=== PATIENT | female | born 1975 | race Caucasian/White ===

== ENCOUNTER 2022-11-30 15:00 | Emergency (ER) | payer BC ==
[2022-11-30 15:06] VITALS: BP 103/71; PULSE 83; RESP 18; TEMP 98.3; BMI 25.6
[2022-11-30 18:47] LABS: BASO % 0.6 % (0-2.0); EOS % 7.9 % (0-4.5); HEMATOCRIT 35.1 % (32.4-45.2); HEMOGLOBIN 11.8 GM/dL (10.7-15.3); LYMPH % 32.9 % (8-40); MCH 28.9 pg (25.7-33.7); MCHC 33.5 g/dl (32.0-36.0); MEAN CELL VOLUME 86.4 fl (80-96); MEAN PLT VOLUME 9.3 fl (7.5-11.1); MONO % 5.6 % (3.8-10.2); PLATELET COUNT 245 10^3/uL (134-434); RBC 4.07 M/mm3 (3.60-5.2); RDW 13.4 % (11.6-15.6)
[2022-11-30 18:50] LABS: POTASSIUM 4.1 mmol/L (3.5-5.1)
[2022-11-30 18:53] LABS: CALCIUM 9.2 mg/dL (8.5-10.1)
[2022-11-30 18:54] LABS: ALBUMIN 3.8 g/dl (3.4-5.0); BLOOD UREA NITROGEN 6.4 mg/dL (7-18)
[2022-11-30 18:57] LABS: CREATININE 0.6 mg/dL (0.55-1.3)
[2022-11-30 18:59] LABS: BILIRUBIN,TOTAL 0.3 mg/dL (0.2-1); TOT PROT 7.2 g/dl (6.4-8.2)
[2022-11-30 19:08] LABS: AMYLASE 43 U/L (25-115); LIPASE 137 U/L (73-393)
[2022-11-30 22:35] LABS: EPI CELLS 10 /uL (0-25.1); HYALINE CASTS 0 /uL (0-3.1); URINE APPEARANCE CLEAR; URINE BACTERIA 26 /uL (0-1359); URINE BILIRUBIN NEGATIVE (NEGATIVE); URINE COLOR YELLOW; URINE GLUCOSE (UA) NEGATIVE (NEGATIVE); URINE KETONE NEGATIVE (NEGATIVE); URINE LEUK ESTERASE NEGATIVE (NEGATIVE); URINE NITRITE NEGATIVE (NEGATIVE); URINE PROTEIN NEGATIVE (NEGATIVE); URINE RBC 42 /uL (0-23.9); URINE UROBILINOGEN 0.2 mg/dL (0.2-1.0); URINE WBC 0 /uL (0-25.8)
== END 2022-11-30 23:00 | disposition home or self-care (01) ==
LOC: JER 15:00
DX: R10.11 Right upper quadrant pain (principal)
CPT/HCPCS: 36415; 74176-TC; 76705-TC; 76830-TC; 80053; 81003; 82150; 83605; 83690; 84703; 85025; 99285-25